=== PATIENT | female | born 1950 | race Caucasian/White ===

== ENCOUNTER 2019-04-30 19:52 | Inpatient (IN) | payer MEDICARE, BC ==
[~2019-04-30] VITALS: Ht 154.9 cm; Wt 65.9 kg
[2019-04-30 20:36] LABS: BASOPHILS 0.1 % (0-2); EOSINOPHILS 0 % (0-7); HEMATOCRIT 39.5 % (36.0-48.0); HEMOGLOBIN 11.3 g/dL (12-16); IMMATURE GRANULOCYTES 0.7 % (0-5); LYMPHOCYTES 4.1 % (15-50); MCH 29.8 pg (26.0-34.0); MCHC 28.6 g/dL (31.0-37.0); MCV 104.2 fL (80.0-100.0); MEAN PLATELET VOLUME 9.9 fL (7.4-10.4); MONOCYTES 1.6 % (2-11); NEUTROPHILS 93.5 % (40-80); PLATELET COUNT 253 10x3/uL (130-400); RBC 3.79 10x6/uL (4.00-5.40); WBC 7.4 10x3/uL (4.8-10.8)
[2019-04-30 20:50] LABS: INR 0.99 (0.85-1.17); PROTIME 12.6 SECONDS (11.6-15.0)
[2019-04-30 20:51] LABS: APTT 30.7 SECONDS (22.8-39.4)
[2019-04-30 21:30] LABS: ALBUMIN 2.8 g/dL (3.4-5.0); ALKALINE PHOSPHATASE 124 U/L (46-116); ALT (SGPT) 45 U/L (10-68); BILIRUBIN - TOTAL 0.26 mg/dL (0.2-1.3); CALC OSMOLALITY 286 mosm/kg (275-300); CHLORIDE - SERUM 100 mmol/L (98-107); CREATINE KINASE 23 UL (21-215); CREATININE - SERUM 0.5 mg/dL (0.6-1.3); GLUCOSE 139 mg/dL (74-106); POTASSIUM - SERUM 4.4 mmol/L (3.5-5.1); PRO BNP 5786 pg/mL (0-125); PROTEIN - SERUM 6.5 g/dL (6.4-8.2); SODIUM 143 mmol/L (136-145); UREA NITROGEN 12 mg/dL (7-18); eGFR NON AFRICAN AMERICAN > 90 mL/min (90-120)
[2019-04-30 21:41] LABS: CARBON DIOXIDE 42.5 mmol/L (21.0-32.0); TROPONIN-I 0.165 ng/mL (0.000-0.060)
--- NOTE | 2019-04-30 22:05 | NUR ---
PT ADMITTED FROM ER TOLD DNR STATUS BUT THERE IS NO DNR RECORD OR ORDER TO BED LOW AND LOCKED SR X2 AND CALL LIGHT WITH PT LUNGS ARE DEMINISHED WITH NO AIR FLOW SKIN COOL AND DRY MAI MASK TO 40% PT IS TELLING ME VERBALLY "I DONT WANT ANY THING DONE" VS 97.7 140/76 80 36 92%
--- NOTE | 2019-04-30 22:17 | NUR ---
NOTED EKGs ORDERED BUT PT ADIMENTLY REFUSES, I WILL RUN LEADS FROM TELEMETRY
[2019-04-30] MEDS ORDERED: PROTONIX40 MG PO (22:19)
[2019-04-30] MEDS ORDERED: ZOLOFT50 MG PO (22:20)
[2019-04-30] MEDS ORDERED: OMEPRAZOLE40 MG PO (22:21)
[2019-04-30] MEDS ORDERED: ISOSORBIDE MONO30 M1 PO (22:21)
[2019-04-30] MEDS ORDERED: CARAFATE1 G PO (22:22)
[2019-04-30] MEDS ORDERED: NORVASC5 MG PO (22:23)
[2019-04-30] MEDS ORDERED: BUSPAR10 MG PO (22:23)
[2019-04-30] MEDS ORDERED: REGLAN5 MG PO (22:23)
[2019-04-30] MEDS ORDERED: ULTRAM50 MG PO (22:24)
[2019-04-30] MEDS ORDERED: PAROXETINE HCL10 MG PO (22:24)
[2019-04-30] MEDS ORDERED: PREPLUS CA-FE1 EACH PO (22:24)
--- NOTE | 2019-04-30 22:39 | NUR ---
DNR ORDER NOW NOTED AND AGAIN PT REFUSED EKG
--- NOTE | 2019-04-30 23:03 | NUR ---
RESTING WITH EYES CLOSED RESP AT 34 LUNGS DEMINISHED IV SITE FLUSHED
[2019-04-30 23:08] LABS: CKMB 2.4 U/L (0.0-3.6); CREATINE KINASE 23 UL (21-215)
[2019-04-30 23:11] LABS: TROPONIN-I 0.188 ng/mL (0.000-0.060)
[2019-05-01] VITALS (8 sets, daily range): BP systolic 105–157; BP diastolic 46–76; Ht 154.9 cm; Wt 65.9 kg
--- NOTE | 2019-05-01 00:24 | NUR ---
RESP 28 AT REST WITH EYES CLOSED
--- NOTE | 2019-05-01 03:14 | NUR ---
EASILY AROUSES DURING MED PUSH AND DENIED ANY NEEDS AT THIS TIME
[2019-05-01 05:03] LABS: BASOPHILS 0 % (0-2); EOSINOPHILS 0 % (0-7); HEMATOCRIT 42.7 % (36.0-48.0); HEMOGLOBIN 12.1 g/dL (12-16); IMMATURE GRANULOCYTES 0.2 % (0-5); LYMPHOCYTES 10.7 % (15-50); MCH 29.5 pg (26.0-34.0); MCHC 28.3 g/dL (31.0-37.0); MCV 104.1 fL (80.0-100.0); MEAN PLATELET VOLUME 10.1 fL (7.4-10.4); NEUTROPHILS 88.1 % (40-80); PLATELET COUNT 246 10x3/uL (130-400); RDW 17.1 % (11.5-14.5)
[2019-05-01 05:27] LABS: ALBUMIN 2.6 g/dL (3.4-5.0); ALKALINE PHOSPHATASE 112 U/L (46-116); ALT (SGPT) 40 U/L (10-68); BILIRUBIN - TOTAL 0.24 mg/dL (0.2-1.3); CALC OSMOLALITY 287 mosm/kg (275-300); CALCIUM 10.4 mg/dL (8.5-10.1); CHLORIDE - SERUM 101 mmol/L (98-107); CKMB 2.5 U/L (0.0-3.6); CREATINE KINASE 19 UL (21-215); CREATININE - SERUM 0.5 mg/dL (0.6-1.3); GLUCOSE 125 mg/dL (74-106); MAGNESIUM - SERUM 2.2 mg/dL (1.8-2.4); PHOSPHOROUS 3.8 mg/dL (2.5-4.9); POTASSIUM - SERUM 4.3 mmol/L (3.5-5.1); PRO BNP 6202 pg/mL (0-125); PROTEIN - SERUM 6.8 g/dL (6.4-8.2); SODIUM 144 mmol/L (136-145); UREA NITROGEN 12 mg/dL (7-18); eGFR NON AFRICAN AMERICAN > 90 mL/min (90-120)
[2019-05-01 05:37] LABS: WBC 4.1 10x3/uL (4.8-10.8)
--- NOTE | 2019-05-01 05:48 | NUR ---
RESTING WITH EYES CLOSED SR ON MONITOR... RESP 26
[2019-05-01 05:55] LABS: CARBON DIOXIDE 45.6 mmol/L (21.0-32.0)
--- NOTE | 2019-05-01 05:58 | NUR ---
CO2 NOTED WITH LITTLE CHANGE PT HAS ALREADY REFUSED INTUBATIION
[2019-05-01 10:05] LABS: APPEARANCE HAZY (CLEAR); BACTERIA FEW /hpf (NEGATIVE); BILIRUBIN NEGATIVE (NEGATIVE); COLOR YELLOW (YELLOW); EPITHELIAL CELLS 0-5 /hpf (0-5); GLUCOSE NEGATIVE (NEGATIVE); KETONE NEGATIVE (NEGATIVE); NITRITE NEGATIVE (NEGATIVE); PROTEIN TRACE mg/dL (NEGATIVE); RED CELLS - URINE RARE /hpf (0-5); SPECIFIC GRAVITY 1.015 (1.005-1.020); UROBILINOGEN NORMAL (NORMAL); WHITE CELLS - URINE 0-5 /hpf (NEGATIVE)
[2019-05-01 10:06] LABS: HYALINE CAST 0-5 /lpf (NONE SEEN); MUCUS >1+ /lpf (NONE SEEN); WAXY CAST RARE /lpf (NONE SEEN)
[2019-05-01 10:36] LABS: CKMB 2.1 U/L (0.0-3.6); CREATINE KINASE 17 UL (21-215); TROPONIN-I 0.108 ng/mL (0.000-0.060)
--- NOTE | 2019-05-01 12:05 | NUR ---
IN ROOM WITH DR. MARTINEZ HE STATES PT WILL NOT BE DCFOR A FEW DAYS AND PT CAN BE HCNAGED TO NC WHILE SHE EATS AND ONCE SHE IS DONE EATING BACK ON THE MASK .PT, PT'S SPOUSE, AND I VERBLIZED UNDERSTANDING.
--- NOTE | 2019-05-01 14:11 | NUR ---
PT LYING IN BED WITH HOB ELEVATED WEARING VENTI MASK WATCHING TV. PT STATES SHE HAS NO FURTHER NEEDS AT THIS TIME. BED LOW. CL IN REACH.
--- NOTE | 2019-05-01 15:57 | NUR ---
I have reviewed this patient and I concur with the Shift Assessment completed by the Licensed Practical Nurse today this shift.
--- NOTE | 2019-05-01 16:41 | NUR ---
I have reviewed this patient and I concur with the Shift Assessment completed by the Licensed Practical Nurse today this shift.
--- NOTE | 2019-05-01 17:29 | MORECARE ---
CASE MANAGEMENT DISCHARGE SUMMARY PATIENT: LYNDSAY GARCIA UNIT: [id number] ADM DATE: 04/30/19 AGE: 68 : 48 SEX: F ROOM/BED: D.2134 AUTHOR: BIBI VERMA PHYSICIAN: REFERRING PHYSICIAN: NOREEN KAN MD DATE OF SERVICE: 05/01/19 Discharge Plan Patient Name: LYNDSAY GARCIA Facility: [facility]:[place] : 1950 Planned Disposition: Home with Home Health Anticipated Discharge Date: Discharge Date: Expected LOS: Initial Reviewer: [email or web address] Initial Review Date: 05/01/2019 Generated: 05/01/19 6:29 pm DCPIA - Discharge Planning Initial Assessment Updated by [email or web address]: Uri Demarco on 05/01/19 5:26 pm * Is the patient Alert and Oriented? Yes * How many steps to enter\exit or inside your home? NONE * PCP DR. BEVERLY IN [place] * Pharmacy [facility] IN [place] * Preadmission Environment Home with Family * ADLs Partial Dependent * Partial ADLs (Assistance needed) Bathing * Equipment Nebulizer Oxygen Rolling Walker * Other Equipment ROLLATOR WALKER HOME AND PORTABLE OXYGEN - [facility] * List name and contact numbers for known caregivers / representatives who currently or will assist patient after discharge: BARB GARCIA, SPOUSE, * Verbal permission to speak to the caregivers and representatives has been obtained from the patient. N/A * Community resources currently utilized Home Health * Please name any agencies selected above. [facility] * Additional services required to return to the preadmission environment? No * Can the patient safely return to the preadmission environment? Yes * Has this patient been hospitalized within the prior 30 days at any hospital? Yes Patient Name: LYNDSAY GARCIA Page [id number] at 1724 All edits/amendments must be made on the electronic document DICTATION DATE: 05/01/191727 FRONT OFFICE COORDINATOR: GLENNY 05/01/191727 RPT#: [id number] DC DATE: STATUS: ADM IN [facility] [address] [place] [address] END OF REPORT
--- NOTE | 2019-05-01 17:37 | MORECARE ---
CASE MANAGEMENT DISCHARGE SUMMARY PATIENT: LYNDSAY GARCIA UNIT: [id number] ADM DATE: 04/30/19 AGE: 68 : 48 SEX: F ROOM/BED: D.9130 AUTHOR: LUCIDOC PHYSICIAN: REFERRING PHYSICIAN: NOREEN KAN MD DATE OF SERVICE: 05/01/19 Discharge Plan Patient Name: LYNDSAY GARCIA Facility: [facility]:[place] : 1950 Planned Disposition: Home with Home Health Anticipated Discharge Date: Discharge Date: Expected LOS: Initial Reviewer: [email or web address] Initial Review Date: 05/01/2019 Generated: 05/01/19 6:37 pm Comments DCP- Discharge Planning Updated by [email or web address]: Uri Demarco on 05/01/19 4:[address] Patient Name: LYNDSAY GARCIA Admission Status: ER Accout number: [id number] Admission Date: 04-30-2019 : 1950 Admission Diagnosis: Attending: NOREEN KAN Current LOS: 1 Anticipated DC Date: Planned Disposition: Home with Home Health Primary Insurance: MEDICARE A & B PLANNED EXTERNAL PROVIDER: [facility] Discharge Planning Comments: CM RECEIVED ORDER THAT PT IS CONSIDERING HOSPICE. CM MET WITH PT IN ROOM TO DISCUSS DISCHARGE PLANNING AND NEEDS. PT REPORTS LIVING AT HOME DEPENDENTLY WITH HER WHO ASSISTS WITH BATHING. PT HAS NEBLUIZER, HOME AND PORTABLE OXYGEN WELL ROLLATOR WALKER FROM [facility]. PT HAS HOME HEALTH WITH [facility]. CM DISCUSSED AVAILABILITY OF HOSPICE, HOME HEALTH, REHAB SERVICES AND MEDICAL EQUIPMENT. PT DOES NOT WANT HOSPICE. HER HOME HEALTH COMPANY HAS DISCUSSED PALLIATIVE CARE AND SHE MAY CONSIDER THAT. PT PLANS TO DISCHARGE HOME WITH SPOUSE WITH RESUMPTION OF HOME HEALTH AND WILL CONSIDER PALLIATIVE CARE FROM HER HOME HEALTH COMPANY. PT REPORTS HER SPOUSE WILL PICK HER UP FOR DISCHARGE HOME. CHOICE FOR [facility] SIGNED. PT DECLINES HOSPICE. PT IS CONSIDERING PALLIATIVE CARE OFFERED FROM HER HOME HEALTH [employer]. PT WANTS TO DISCHARGE HOME WITH SPOUSE WITH RESUMPTION OF HOME HEALTH. TO RESUME HOME HEALTH, CONTACT [facility] AT , FAX DISCHARGE INFORMATION TO [facility] AT [phone]. CM TO CONTINUE TO FOLLOW AND ASSIST IF NEEDED. Water Resource Agent: Uri Dav DCPIA - Discharge Planning Initial Assessment Updated by [email or web address]: Uri Demarco on 05/01/19 5:26 pm * Is the patient Alert and Oriented? Yes * How many steps to enter\exit or inside your home? NONE * PCP DR. BEVERLY IN [place] * Pharmacy [facility] IN [place] * Preadmission Environment Home with Family * ADLs Partial Dependent * Partial ADLs (Assistance needed) Bathing * Equipment Nebulizer Oxygen Rolling Walker * Other Equipment ROLLATOR WALKER HOME AND PORTABLE OXYGEN - [facility] * List name and contact numbers for known caregivers / representatives who currently or will assist patient after discharge: BARB GARCIA, SPOUSE, * Verbal permission to speak to the caregivers and representatives has been obtained from the patient. N/A * Community resources currently utilized Home Health * Please name any agencies selected above. [facility] * Additional services required to return to the preadmission environment? No * Can the patient safely return to the preadmission environment? Yes * Has this patient been hospitalized within the prior 30 days at any hospital? Yes Last DP export: 05/01/19 4:29 Patient Name: LYNDSAY GARCIA Page [id number] at 1737 All edits/amendments must be made on the electronic document DICTATION DATE: 05/01/191736 OLEOMARGARINE MAKER: GLENNY 05/01/191736 RPT#: [id number] DC DATE: STATUS: ADM IN [facility] [address] [place] [address] END OF REPORT
--- NOTE | 2019-05-01 20:18 | NUR ---
RECIEVED UP IN BED RECIEVING UPDRAT. RT AT BEDSIDE. ALERT AND ORIENTED. UP AD PATRICIO WITH WKR. IV TO LEFT FA SL.. TELEMETY IN PLACE. NO EDEMA OBSERVED. DENIES ANY NEEDS AT THIS TIME.
[2019-05-02 04:30] VITALS: BP 132/52
[2019-05-02 05:10] LABS: BASOPHILS 0 % (0-2); EOSINOPHILS 0 % (0-7); HEMATOCRIT 35.9 % (36.0-48.0); HEMOGLOBIN 10.3 g/dL (12-16); LYMPHOCYTES 10.4 % (15-50); MCH 29.2 pg (26.0-34.0); MCHC 28.7 g/dL (31.0-37.0); MEAN PLATELET VOLUME 9.8 fL (7.4-10.4); MONOCYTES 7.4 % (2-11); NEUTROPHILS 82.2 % (40-80); PLATELET COUNT 251 10x3/uL (130-400); RBC 3.53 10x6/uL (4.00-5.40); RDW 17.2 % (11.5-14.5); WBC 4.4 10x3/uL (4.8-10.8)
[2019-05-02 05:29] LABS: CALCIUM 10.1 mg/dL (8.5-10.1); CHLORIDE - SERUM 103 mmol/L (98-107); CREATININE - SERUM 0.5 mg/dL (0.6-1.3); GLUCOSE 125 mg/dL (74-106); MAGNESIUM - SERUM 2.1 mg/dL (1.8-2.4); POTASSIUM - SERUM 4.1 mmol/L (3.5-5.1); SODIUM 143 mmol/L (136-145); eGFR NON AFRICAN AMERICAN > 90 mL/min (90-120)
[2019-05-02 05:32] LABS: MCV 101.7 fL (80.0-100.0)
[2019-05-02 05:39] LABS: CALC OSMOLALITY 287 mosm/kg (275-300); PHOSPHOROUS 2.8 mg/dL (2.5-4.9); UREA NITROGEN 18 mg/dL (7-18)
[2019-05-02 05:40] LABS: CARBON DIOXIDE 42.9 mmol/L (21.0-32.0)
--- NOTE | 2019-05-02 07:00 | NUR ---
REPORT RECEIVED. ALERT ABLE TO VOICE NEEDS. LEFT F/A SALINE LOCK INTACT. V/M ON AT 7 L/M. BED IN LOWEST POSITION AND LOCKED. CL IN REACH. SHORTNESS OF BREATH WHILE TALKING. HOB UP. RT IS ENTERED ROOM FOR BREATHING TX. CAREPLAN REVIEW DONE WITH SAGFETY PRECAUTIONS IN PLACE
[2019-05-02 08:10] VITALS: BP 134/66
--- NOTE | 2019-05-02 09:32 | NUR ---
NOTIFIED PHARMACY OF NEED FOR BYSTOLIC NOT IN [place] OR PT DRAWER. DAVID IS AWARE AND WILL SEND IT
[2019-05-02 11:02] VITALS: BP 139/59
[2019-05-02] MEDS ORDERED: BYSTOLIC2.5 MG PO (11:28)
--- NOTE | 2019-05-02 11:32 | NUR ---
NOTIFIED [facility] AGAIN OF NEED FOR ELIZA AT THE PHARMACY
--- NOTE | 2019-05-02 11:43 | NUR ---
MED WAS RECEIVED AND GIVEN TO HER AT THIS TIME. SHE VOICES NO C/O.
[2019-05-02] MEDS ORDERED: PULMICORT0.5 MG/21 INH (11:52)
[2019-05-02] MEDS ORDERED: IPRAT-ALBUT 0.5-3 ML UPD (11:54)
[2019-05-02] MEDS ORDERED: ATROVENT 0.02%2.5 ML UPD (11:54)
--- NOTE | 2019-05-02 12:42 | MORECARE ---
CASE MANAGEMENT DISCHARGE SUMMARY PATIENT: LYNDSAY GARCIA UNIT: [id number] ADM DATE: 04/30/19 AGE: 68 : 48 SEX: F ROOM/BED: D.8153 AUTHOR: LUCI,DOC PHYSICIAN: REFERRING PHYSICIAN: NOREEN KAN MD DATE OF SERVICE: 05/02/19 Discharge Plan Patient Name: LYNDSAY GARCIA Facility: [facility]:[place] : 1950 Planned Disposition: Home with Home Health Anticipated Discharge Date: Discharge Date: Expected LOS: Initial Reviewer: [id number] Initial Review Date: 05/01/2019 Generated: 05/02/19 1:42 pm Comments DCP- Discharge Planning Updated by [email or web address]: Kiersten Martinez on 05/02/19 11:[address] Patient Name: LYNDSAY GARCIA Encounter No: [id number] : 1950 Primary Insurance: MEDICARE A & B Anticipated DC Date: Planned Disposition: Home with Home Health External Planned Provider: : DCP follow-up note: Patient and family in agreement with discharge plan. No changes to plan. PATIENT TO HOME AND RESUME [facility]. DC FAXED TO [facility]. Case management will follow and assist as needed. Kiersten Martinez DCP- Discharge Planning Updated by [id number]: Uri Demarco on 05/01/19 4:[address] Patient Name: LYNDSAY GARCIA Admission Status: ER Accout number: [id number] Admission Date: 04-30-2019 : 1950 Admission Diagnosis: Attending: NOREEN KAN Current LOS: 1 Anticipated DC Date: Planned Disposition: Home with Home Health Primary Insurance: MEDICARE A & B PLANNED EXTERNAL PROVIDER: [facility] Discharge Planning Comments: CM RECEIVED ORDER THAT PT IS CONSIDERING HOSPICE. CM MET WITH PT IN ROOM TO DISCUSS DISCHARGE PLANNING AND NEEDS. PT REPORTS LIVING AT HOME DEPENDENTLY WITH HER WHO ASSISTS WITH BATHING. PT HAS NEBLUIZER, HOME AND PORTABLE OXYGEN WELL ROLLATOR WALKER FROM [facility]. PT HAS HOME HEALTH WITH [facility]. CM DISCUSSED AVAILABILITY OF HOSPICE, HOME HEALTH, REHAB SERVICES AND MEDICAL EQUIPMENT. PT DOES NOT WANT HOSPICE. HER HOME HEALTH COMPANY HAS DISCUSSED PALLIATIVE CARE AND SHE MAY CONSIDER THAT. PT PLANS TO DISCHARGE HOME WITH SPOUSE WITH RESUMPTION OF HOME HEALTH AND WILL CONSIDER PALLIATIVE CARE FROM HER HOME HEALTH COMPANY. PT REPORTS HER SPOUSE WILL PICK HER UP FOR DISCHARGE HOME. CHOICE FOR [facility] SIGNED. PT DECLINES HOSPICE. PT IS CONSIDERING PALLIATIVE CARE OFFERED FROM HER HOME HEALTH COMPANY. PT WANTS TO DISCHARGE HOME WITH SPOUSE WITH RESUMPTION OF HOME HEALTH. TO RESUME HOME HEALTH, CONTACT [facility] AT , FAX DISCHARGE INFORMATION TO [facility] AT [phone]. TO CONTINUE TO FOLLOW AND ASSIST IF NEEDED. [address] Freight: Uri Demarco DCPIA - Discharge Planning Initial Assessment Updated by [email or web address]: Uri Demarco on 05/01/19 5:26 pm * Is the patient Alert and Oriented? Yes * How many steps to enter\exit or inside your home? NONE * PCP DR. BEVERLY IN [place] * Pharmacy [facility] IN [place] * Preadmission Environment Home with Family * ADLs Partial Dependent * Partial ADLs (Assistance needed) Bathing * Equipment Nebulizer Oxygen Rolling Walker * Other Equipment ROLLATOR WALKER HOME AND PORTABLE OXYGEN - [facility] * List name and contact numbers for known caregivers / representatives who currently or will assist patient after discharge: BARB GARCIA, SPOUSE, * Verbal permission to speak to the caregivers and representatives has been obtained from the patient. N/A * Community resources currently utilized Home Health * Please name any agencies selected above. [facility] * Additional services required to return to the preadmission environment? No * Can the patient safely return to the preadmission environment? Yes * Has this patient been hospitalized within the prior 30 days at any hospital? Yes Last DP export: 05/01/19 4:37 Patient Name: LYNDSAY GARCIA Page 67862 at 1242 All edits/amendments must be made on the electronic document DICTATION DATE: 05/02/191241 MUNICIPAL ENGINEER: GLENNY 05/02/191241 RPT#: [id number] DC DATE: STATUS: ADM IN [facility] [address] [place] [address] END OF REPORT
--- NOTE | 2019-05-02 12:43 | NUR ---
DISCHARGE INSTRUCTIONS EXPLAINED IN DETAIL INCLUDING NO MEDS AND WHERE TO GET THEM. IS HERE AND GOING DOWN TO GET PORTABLE O2, SALINE LOCK D/C WITH CATH TIP INTACT NO BLEEDING. TELEMETRY RETURNED TO RUBBER SPLICER. FLU SHOT WAS GIVEN IN HER LEFT ARM.
--- NOTE | 2019-05-02 12:56 | NUR ---
TRANSPORTED VIA W/C TO [facility] WITH PORTABLE O2 ON. SHE OFFERS NO C/O
--- NOTE | 2019-05-02 15:41 | MORECARE ---
CASE MANAGEMENT DISCHARGE SUMMARY PATIENT: LYNDSAY GARCIA UNIT: [id number] ADM DATE: 04/30/19 AGE: 68 : 48 SEX: F ROOM/BED: D.0766 AUTHOR: LUCI,DOC PHYSICIAN: REFERRING PHYSICIAN: NOREEN KAN MD DATE OF SERVICE: 05/02/19 Discharge Plan Patient Name: LYNDSAY GARCIA Facility: [facility]:[place] : 1950 Planned Disposition: Home with Home Health Anticipated Discharge Date: Discharge Date: 05/02/2019 Expected LOS: Initial Reviewer: [email or web address] Initial Review Date: 05/01/2019 Generated: 05/02/19 4:40 pm DCP- Discharge Planning Updated by [email or web address]: Kiersten Martinez on 05/02/19 11:[address] Patient Name: LYNDSAY GARCIA Encounter No: [id number] : 1950 Primary Insurance: MEDICARE A & B Anticipated DC Date: Planned Disposition: Home with Home Health External Planned Provider: : [facility] follow-up note: Patient and family in agreement with discharge plan. No changes to plan. PATIENT TO HOME AND RESUME [facility]. DC FAXED TO [facility]. Case management will follow and assist as needed. Kiersten Martinez DCP- Discharge Planning Updated by [email or web address]: Uri Demarco on 05/01/19 4:[address] Patient Name: LYNDSAY GARCIA Admission Status: ER Accout number: [id number] Admission Date: 04-30-2019 : 1950 Admission Diagnosis: Attending: NOREEN KAN Current LOS: 1 Anticipated DC Date: Planned Disposition: Home with Home Health Primary Insurance: MEDICARE A & B PLANNED EXTERNAL PROVIDER: [facility] Discharge Planning Comments: CM RECEIVED ORDER THAT PT IS CONSIDERING HOSPICE. CM MET WITH PT IN ROOM TO DISCUSS DISCHARGE PLANNING AND NEEDS. PT REPORTS LIVING AT HOME DEPENDENTLY WITH HER WHO ASSISTS WITH BATHING. PT HAS NEBLUIZER, HOME AND PORTABLE OXYGEN WELL ROLLATOR WALKER FROM [facility]. PT HAS HOME HEALTH WITH [facility]. CM DISCUSSED AVAILABILITY OF HOSPICE, HOME HEALTH, REHAB SERVICES AND MEDICAL EQUIPMENT. PT DOES NOT WANT HOSPICE. HER [employer] [facility] HAS DISCUSSED PALLIATIVE CARE AND SHE MAY CONSIDER THAT. PT PLANS TO DISCHARGE HOME WITH SPOUSE WITH RESUMPTION OF HOME HEALTH AND WILL CONSIDER PALLIATIVE CARE FROM HER HOME HEALTH COMPANY. PT REPORTS HER SPOUSE WILL PICK HER UP FOR DISCHARGE HOME. CHOICE FOR [facility] SIGNED. PT DECLINES HOSPICE. PT IS CONSIDERING PALLIATIVE CARE OFFERED FROM HER HOME HEALTH COMPANY. PT WANTS TO DISCHARGE HOME WITH SPOUSE WITH RESUMPTION OF HOME HEALTH. TO RESUME HOME HEALTH, CONTACT [facility] AT , FAX DISCHARGE INFORMATION TO [facility] AT [phone]. CM TO CONTINUE TO FOLLOW AND ASSIST IF NEEDED. Gear Hobber Operator: Uri Demarco DCPIA - Discharge Planning Initial Assessment Updated by [email or web address]: Uri Demarco on 05/01/19 5:26 pm * Is the patient Alert and Oriented? Yes * How many steps to enter\exit or inside your home? NONE * PCP DR. BEVERLY IN [place] * Pharmacy [facility] IN [place] * Preadmission Environment Home with Family * ADLs Partial Dependent * Partial ADLs (Assistance needed) Bathing * Equipment Nebulizer Oxygen Rolling Walker * Other Equipment ROLLATOR WALKER HOME AND PORTABLE OXYGEN - [facility] * List name and contact numbers for known caregivers / representatives who currently or will assist patient after discharge: BARB GARCIA, SPOUSE, * Verbal permission to speak to the caregivers and representatives has been obtained from the patient. N/A * Community resources currently utilized Home Health * Please name any agencies selected above. [facility] * Additional services required to return to the preadmission environment? No * Can the patient safely return to the preadmission environment? Yes * Has this patient been hospitalized within the prior 30 days at any hospital? Yes Last DP export: 05/02/19 11:42 Patient Name: LYNDSAY GARCIA Page [phone] at 1541 All edits/amendments must be made on the electronic document DICTATION DATE: 05/02/191539 WAREHOUSE CONSULTANT: GLENNY 05/02/191539 RPT#: [id number] DC DATE:05/02/19 STATUS: DIS IN [facility] [address] [place] [address] END OF REPORT
== END 2019-05-02 12:56 | disposition home health service (06) | DRG 189 ==
LOC: D.ER 19:52 → D.M2 20:46
PROVIDERS: Family Medicine; ADMIT Internal Medicine Nephrology; ATTEND Internal Medicine Nephrology
DX: J96.22 Acute and chronic respiratory failure with hypercapnia (principal); I21.A1 Myocardial infarction type 2; I50.23 Acute on chronic systolic (congestive) heart failure; I25.10 Atherosclerotic heart disease of native coronary artery without angina pectoris; Z66 Do not resuscitate; J43.9 Emphysema, unspecified; J96.21 Acute and chronic respiratory failure with hypoxia; E83.52 Hypercalcemia; Z87.891 Personal history of nicotine dependence